=== PATIENT | female | born 1990 | race Caucasian/White ===

== ENCOUNTER 2017-07-05 14:18 | Outpatient (CLI) | payer OTHER ==
[~2017-07-05] VITALS: Ht 160 cm; Wt 71.4 kg
[2017-07-05 14:38] VITALS: BP 111/66; PULSE 96; TEMP 98.6
[2017-07-05] MEDS ORDERED: PRENATAL MVI (14:46)
[2017-07-05] MEDS ORDERED: TYLENOL 325MG325 MG PO (14:46)
[2017-07-05] MEDS ORDERED: MACROBID 1100 MG/CAP PO (14:46)
[2017-07-05] MEDS ORDERED: TUMS500 MG (14:47)
[2017-07-05 15:30] VITALS: BP 111/66; PULSE 96
== END 2017-07-05 16:00 | disposition home or self-care (01) ==
LOC: LDRO 14:18
DX: O71.89 Other specified obstetric trauma (principal); W08.XXXA Fall from other furniture, initial encounter; Y99.0 Civilian activity done for income or pay; Z3A.24 24 weeks gestation of pregnancy

== ENCOUNTER 2017-10-07 12:35 | Inpatient (IN) | payer BC ==
[2017-10-07] VITALS (35 sets, daily range): BP systolic 107–153; BP diastolic 56–82; PULSE 74–196; TEMP 98–99.5
[~2017-10-07] VITALS: Ht 162.6 cm; Wt 77.3 kg
[~2017-10-07 12:35] MED LIST: MACROBID 1100 MG/CAP PO; PRENATAL MVI; TUMS500 MG; TYLENOL 325MG325 MG PO
[2017-10-07] MEDS ORDERED: ZANTAC 7575 MG PO (12:59)
[2017-10-07 14:05] LABS: AMPHETAMINE URINE NEGATIVE; BARBITURATES URINE NEGATIVE; BENZODIAZEPINES URINE NEGATIVE; BUPRENORPHINE URINE NEGATIVE; METHADONE URINE NEGATIVE; OPIATES URINE NEGATIVE; OXYCODONE URINE NEGATIVE; PHENCYCLIDINE URINE NEGATIVE; PROPOXYPHENE URINE NEGATIVE; THC CANNABINOIDS URINE NEGATIVE; TRICYCLIC ANTIDEPRESS URINE NEGATIVE
[2017-10-07 14:25] LABS: BASO % 0.2 % (0.0-2.0); EOS # 0.1 (0.0-0.7); EOS % 0.5 % (0-4.0); GRAN # 11.8 (1.4-6.5); GRAN % 80.3 % (42.2-75.2); HEMATOCRIT 37.2 % (37.0-47.0); HEMOGLOBIN 12.6 g/dl (12.5-16.0); LYMPH # 1.8 (1.2-3.4); LYMPH % 11.9 % (20.0-51.0); MEAN CELL VOLUME 88 fl (80.0-100.0); MEAN CORPUSCULAR HEMOGLOBIN 30 pg (27.0-31.0); MEAN CORPUSCULAR HGB CONC 34 g/dl (33.0-37.0); MEAN PLATELET VOLUME 10.6 fl (7.4-10.4); MONO % 6.6 % (1.7-9.3); PLATELET COUNT 313 K/mm3 (130-400); RED BLOOD COUNT 4.21 M/mm3 (4.10-5.30); WHITE BLOOD COUNT 14.7 K/mm3 (4.8-10.8)
[2017-10-08 00:41] VITALS: BP 115/75; PULSE 125; TEMP 98.4
[2017-10-08 05:30] VITALS: BP 111/67; PULSE 89; TEMP 97.6
[2017-10-08 07:00] VITALS: BP 125/79; PULSE 68; TEMP 99.6
[2017-10-08 15:51] VITALS: BP 112/68; PULSE 78; TEMP 97.6
[2017-10-08 18:40] VITALS: BP 108/54; PULSE 105; TEMP 98.3
[2017-10-09 07:21] VITALS: BP 115/72; PULSE 89; TEMP 98.3
[2017-10-09] MEDS ORDERED: IBU600 MG PO (08:27)
== END 2017-10-09 12:39 | disposition home or self-care (01) | DRG 775 ==
LOC: LDRO 12:35 → LDR 12:45 → OB 10-08 00:20
PROVIDERS: Obstetrics & Gynecology
PROC: 10E0XZZ Delivery of Products of Conception, External Approach (ICD-10-PCS; principal; 2017-10-07)
PROC: 0KQM0ZZ Repair Perineum Muscle, Open Approach (ICD-10-PCS; 2017-10-07)
DX: O69.81X0 Labor and delivery complicated by cord around neck, without compression, not applicable or unspecified (principal); O70.1 Second degree perineal laceration during delivery; Z3A.38 38 weeks gestation of pregnancy; Z37.0 Single live birth
CPT/HCPCS: J2590; J2795; J7120

== ENCOUNTER 2017-10-24 11:22 | Emergency (ER) | payer BC, OTHER ==
[~2017-10-24] VITALS: Ht 160 cm; Wt 70.5 kg
[~2017-10-24 11:22] MED LIST changes: +IBU600 MG PO; +ZANTAC 7575 MG PO
[2017-10-24 11:23] VITALS: TEMP 98
[2017-10-24] MEDS ORDERED: LEXAPRO 10MG10 MG PO (11:27)
[2017-10-24 12:23] LABS: BASO # 0.1 (0.0-0.2); BASO % 0.4 % (0.0-2.0); EOS # 0.3 (0.0-0.7); EOS % 2.3 % (0-4.0); GRAN # 10.7 (1.4-6.5); GRAN % 81.9 % (42.2-75.2); HEMATOCRIT 42.6 % (37.0-47.0); HEMOGLOBIN 13.8 g/dl (12.5-16.0); LYMPH # 1.4 (1.2-3.4); LYMPH % 10.8 % (20.0-51.0); MEAN CELL VOLUME 90 fl (80.0-100.0); MEAN CORPUSCULAR HEMOGLOBIN 29 pg (27.0-31.0); MEAN CORPUSCULAR HGB CONC 32 g/dl (33.0-37.0); MEAN PLATELET VOLUME 10.8 fl (7.4-10.4); MONO # 0.6 (0.1-0.6); MONO % 4.4 % (1.7-9.3); PLATELET COUNT 327 K/mm3 (130-400); RED BLOOD COUNT 4.71 M/mm3 (4.10-5.30); WHITE BLOOD COUNT 13.1 K/mm3 (4.8-10.8)
[2017-10-24 13:10] LABS: ADJUSTED CALCIUM 9.6 mg/dL (8.4-10.2); ALANINE AMINOTRANSFERASE 41 U/L (9-52); ALBUMIN 3.9 gm/dL (3.5-5.0); ALKALINE PHOSPHATASE 169 U/L (50-136); ANION GAP 8 mmol/L (7-16); BILIRUBIN,TOTAL 1.3 mg/dL (0.0-1.0); BLOOD UREA NITROGEN 10 mg/dL (7-17); CALCIUM 9.5 mg/dL (8.4-10.2); CARBON DIOXIDE 26 mmol/L (22-30); CHLORIDE 103 mmol/L (98-107); CREATININE, serum 0.64 mg/dL (0.52-1.25); GLUCOSE 88 mg/dL (74-106); POTASSIUM 3.8 mmol/L (3.4-5.0); SODIUM 137 mmol/L (137-145); TOTAL PROTEIN 7.2 gm/dL (6.4-8.2)
[2017-10-24 13:11] LABS: ACETAMINOPHEN < 10 ug/mL (10-30); ALCOHOL(ethanol),MEDICAL < 10 mg/dL; SALICYLATE < 1.0 mg/dL
[2017-10-24 13:39] LABS: TSH w REFLEX 0.515 uIU/mL (0.465-4.680)
[2017-10-24 13:41] LABS: COLLECTION METHOD CLEAN CATCH
[2017-10-24 13:50] LABS: MUCOUS Present /lpf; PH 5 (5-8); SQUAMOUS EPITHELIAL 0-2 /hpf; URINE APPEARANCE Clear; URINE BACTERIA None Seen /hpf; URINE BILIRUBIN Negative (NEGATIVE); URINE BLOOD 3+ (NEGATIVE); URINE COLOR Straw; URINE GLUCOSE Negative (NEGATIVE); URINE KETONE Negative (NEGATIVE); URINE LEUKOCYTE ESTERASE 1+ (NEGATIVE); URINE PROTEIN(semi-quant) Negative (NEGATIVE); URINE RBC 0-2 /hpf; URINE UROBILINOGEN Negative (NEGATIVE)
[2017-10-24 13:52] LABS: URINE WBC 20-50 /hpf
[2017-10-24 14:32] LABS: AMPHETAMINE URINE NEGATIVE; BARBITURATES URINE NEGATIVE; BENZODIAZEPINES URINE NEGATIVE; BUPRENORPHINE URINE NEGATIVE; METHADONE URINE NEGATIVE; OPIATES URINE NEGATIVE; OXYCODONE URINE NEGATIVE; PHENCYCLIDINE URINE NEGATIVE; PROPOXYPHENE URINE NEGATIVE; THC CANNABINOIDS URINE NEGATIVE; TRICYCLIC ANTIDEPRESS URINE NEGATIVE
[2017-10-24] MEDS ORDERED: CEPHALEXIN500 M1 PO (16:04)
[2017-10-24 16:14] VITALS: BP 106/70; PULSE 85
== END 2017-10-24 16:29 | disposition home or self-care (01) ==
LOC: COL.ER 11:22
PROVIDERS: Emergency Medicine; Physician Assistant
DX: F53 Mental and behavioral disorders associated with the puerperium, not elsewhere classified (principal); F32.9 Major depressive disorder, single episode, unspecified; Z79.1 Long term (current) use of non-steroidal anti-inflammatories (NSAID)
CPT/HCPCS: J0696; J2060; J7030